=== PATIENT | female | born 1965 | race Two or more races ===

== ENCOUNTER 2017-05-25 18:19 | Emergency (ER) | payer OTHER ==
[~2017-05-25] VITALS: Ht 165.1 cm; Wt 72.2 kg
[2017-05-25] MEDS ORDERED: normal saline 1000ML IV soln IVB ONE (19:20)
[2017-05-25] MEDS ORDERED: metoclopramide 5 mg/ml inj IV ONE (19:20)
[2017-05-25] MEDS ORDERED: ketorolac trometh. 30mg/ml inj. IV ONE (19:20)
[2017-05-25] MEDS ORDERED: ondansetron/PF 4mg/2ml inj IV ONE (19:20)
[2017-05-25] MEDS ORDERED: diphenhydrAMINE 50 mg/ml inj IV ONE (19:20)
[2017-05-25 21:13] VITALS: BP 138/79
== END 2017-05-25 21:15 | disposition home or self-care (01) ==
LOC: ER 18:20
DX: G43.909 Migraine, unspecified, not intractable, without status migrainosus (principal)
CPT/HCPCS: 96361; 96374; 96375; 99285; A4565; J1200; J1885; J2405; J2765; J7030

== ENCOUNTER 2019-06-13 06:09 | Emergency (ER) | payer BC, OTHER ==
[~2019-06-13] VITALS: Ht 165.1 cm; Wt 83.2 kg
[2019-06-13] MEDS ORDERED: normal saline 1000ML IV soln IVB ONE (07:05)
[2019-06-13] MEDS ORDERED: diphenhydrAMINE 50 mg/ml inj IV ONE (07:05)
[2019-06-13] MEDS ORDERED: proCHLORperazine 10 MG/2 ml inj IV ONE (07:05)
[2019-06-13] MEDS ORDERED: ketorolac tromethamine 15mg/ml inj. IV ONE (07:05)
[2019-06-13 07:43] VITALS: BP 124/67
== END 2019-06-13 08:37 | disposition home or self-care (01) ==
LOC: ER 06:09
DX: R51 Headache (principal); R11.0 Nausea; H53.149 Visual discomfort, unspecified; F20.9 Schizophrenia, unspecified
CPT/HCPCS: 96374; 96375; 99284; J0780; J1200; J1885; J7030